=== PATIENT | male | born 1990 | race Two or more races ===

== ENCOUNTER 2017-04-19 19:20 | Emergency (ER) | payer OTHER ==
[~2017-04-19] VITALS: Ht 182.9 cm; Wt 103.9 kg
[2017-04-19 19:29] VITALS: BP 160/107
== END 2017-04-19 20:54 | disposition home or self-care (01) ==
LOC: ER 19:20
DX: S00.83XA Contusion of other part of head, initial encounter (principal); W22.09XA Striking against other stationary object, initial encounter; Y93.89 Activity, other specified; Y92.89 Other specified places as the place of occurrence of the external cause; Y99.8 Other external cause status
CPT/HCPCS: 70450

== ENCOUNTER 2017-07-18 11:26 | Emergency (ER) | payer OTHER ==
[~2017-07-18] VITALS: Ht 180.3 cm; Wt 99.8 kg
[2017-07-18 11:38] VITALS: BP 164/104
[2017-07-18] MEDS ORDERED: methylPREDNISolone SOD SUCC 125 MG/2 ML VL IM ONE (11:45)
[2017-07-18] MEDS ORDERED: IPRATROPIUM BROM 0.5 MG/2.5ML INH SOL NEB ONE (11:45)
[2017-07-18] MEDS ORDERED: ALBUTEROL SULF 2.5 MG/0.5ML(0.5%) NEB SOLN NEB ONE (11:45)
[2017-07-18] MEDS ORDERED: diphenhdrAMINE HCL 50 MG/1 ML VL IM ONE (11:45)
== END 2017-07-18 13:06 | disposition home or self-care (01) ==
LOC: ER 11:26
DX: T78.40XA Allergy, unspecified, initial encounter (principal); Z91.013 Allergy to seafood; Z91.041 Radiographic dye allergy status
CPT/HCPCS: 94640; 96372; 99284; J1200; J2930

== ENCOUNTER 2023-10-13 08:42 | Emergency (ER) | payer OTHER ==
[~2023-10-13] VITALS: Ht 180.3 cm; Wt 93.3 kg
[2023-10-13 10:25] VITALS: BP 145/86; PULSE 62; RESP 16; TEMP 97.9; O2SAT 100
[2023-10-14 09:05] LABS: Hepatitis B Surface Antigen Negative (Negative)
[2023-10-14 09:08] LABS: Hepatitis B Surface Antibody Positive (Negative)
== END 2023-10-13 11:27 | disposition home or self-care (01) ==
LOC: ER 08:42
DX: S99.922A Unspecified injury of left foot, initial encounter (principal); Z20.6 Contact with and (suspected) exposure to human immunodeficiency virus [HIV]; W46.0XXA Contact with hypodermic needle, initial encounter; Y93.89 Activity, other specified; Y92.89 Other specified places as the place of occurrence of the external cause; Y99.8 Other external cause status
CPT/HCPCS: 36415; 86703; 86706; 86803; 87340